=== PATIENT | male | born 1950 | race Caucasian/White ===

== ENCOUNTER 2016-11-12 14:52 | Emergency (ER) | payer OTHER ==
[~2016-11-12] VITALS: Ht 177.8 cm; Wt 125.2 kg
[2016-11-12 14:52] VITALS: BP 120/71
[2016-11-12] MEDS ORDERED: ATOR1TAB21 (15:03)
[2016-11-12] MEDS ORDERED: LANO0.1211 (15:03)
[2016-11-12] MEDS ORDERED: SITA50TAB (15:03)
[2016-11-12] MEDS ORDERED: LANTINJ4 SQ (15:03)
[2016-11-12] MEDS ORDERED: GABA600T (15:03)
[2016-11-12] MEDS ORDERED: METO100T (15:03)
[2016-11-12] MEDS ORDERED: XARE20TA (15:03)
[2016-11-12] MEDS ORDERED: MICA5TAB (15:03)
[2016-11-12] MEDS ORDERED: COLC1TAB5 (15:03)
[2016-11-12] MEDS ORDERED: HYDR25TA6 (15:04)
[2016-11-12] MEDS ORDERED: [UNRECOGNIZED DRUG - CODE] (15:04)
[2016-11-12] MEDS ORDERED: NOVOINJ3 (15:04)
== END 2016-11-12 15:51 | disposition home or self-care (01) ==
LOC: M ED 15:39
DX: H53.40 Unspecified visual field defects (principal); I10 Essential (primary) hypertension; I48.91 Unspecified atrial fibrillation; E78.9 Disorder of lipoprotein metabolism, unspecified; Z79.899 Other long term (current) drug therapy; Z79.01 Long term (current) use of anticoagulants; Z79.4 Long term (current) use of insulin